=== PATIENT | male | born 1935 | race Caucasian/White ===

== ENCOUNTER 2025-02-10 06:29 | Emergency (ER) | payer MEDICARE ==
[~2025-02-10] VITALS: Ht 172.7 cm; Wt 93.9 kg
[2025-02-10] MEDS ORDERED: BENAZEPRIL HCL40 M4 PO (07:16)
[2025-02-10] MEDS ORDERED: EUTHYROX50 MC1 PO (07:16)
[2025-02-10] MEDS ORDERED: ESCI10 PO (07:16)
[2025-02-10] MEDS ORDERED: ATORVASTATIN CA20 MG PO (07:16)
[2025-02-10] MEDS ORDERED: FARXIGA10 MG PO (07:17)
[2025-02-10] MEDS ORDERED: ALLO300 PO (07:17)
[2025-02-10] MEDS ORDERED: FINA5 PO (07:17)
[2025-02-10] MEDS ORDERED: CARVEDILOL12.5 MG PO (07:17)
[2025-02-10] MEDS ORDERED: POTA10T (07:18)
[2025-02-10] MEDS ORDERED: DIURETIC (07:19)
[2025-02-10] MEDS ORDERED: Fluorescein Sod 1MG Opth Strips LEFTEYE ONE (07:25)
[2025-02-10] MEDS ORDERED: Tetracaine HCl/Pf 0.5% Opth Soln 4 ml LEFTEYE ONE (07:25)
[2025-02-10] MEDS ORDERED: Polymyxin B /Trimethoprim Opth Soln 10 ML BOTHEYES ONE (09:55)
[2025-02-10] MEDS ORDERED: POLYTRIM EYE DR10 M1 BOTHEYES (09:56)
== END 2025-02-10 10:11 | disposition home or self-care (01) ==
LOC: ER 06:29
DX: H10.9 Unspecified conjunctivitis (principal); I10 Essential (primary) hypertension; E78.5 Hyperlipidemia, unspecified; Z79.899 Other long term (current) drug therapy; I48.91 Unspecified atrial fibrillation; Z88.0 Allergy status to penicillin
CPT/HCPCS: 99283; A9270